=== PATIENT | female | born 1985 | race African-American/Black ===

== ENCOUNTER 2021-06-04 12:34 | Emergency (ER) | payer OTHER ==
[~2021-06-04] VITALS: Ht 167.6 cm; Wt 87.0 kg
[2021-06-04 12:56] VITALS: BP 136/56
[2021-06-04] MEDS ORDERED: METHOCARBAMOL 500MG TABLET PO ONE (13:00)
[2021-06-04] MEDS ORDERED: KETOROLAC 60MG/2ML VIAL IM ONE (13:00)
[2021-06-04] MEDS ORDERED: METHOCARBAMOL 500MG TABLET PO NR (15:00)
[2021-06-04] MEDS ORDERED: KETOROLAC 60MG/2ML VIAL IM NR (15:00)
[2021-06-04] MEDS ORDERED: LIDO1ADH5 TP (16:30)
[2021-06-04] MEDS ORDERED: NAPR-681 MT (16:30)
[2021-06-04] MEDS ORDERED: METH-773 MT (16:30)
== END 2021-06-04 16:03 | disposition left against medical advice (07) ==
LOC: ER 12:34
DX: S16.1XXA Strain of muscle, fascia and tendon at neck level, initial encounter (principal); S20.219A Contusion of unspecified front wall of thorax, initial encounter; J45.909 Unspecified asthma, uncomplicated; V43.52XA Car driver injured in collision with other type car in traffic accident, initial encounter; Y93.89 Activity, other specified; Y92.488 Other paved roadways as the place of occurrence of the external cause
CPT/HCPCS: 71045; 93005; 96372; 99283; J1885

== ENCOUNTER 2022-04-08 16:31 | Emergency (ER) | payer OTHER ==
[~2022-04-08] VITALS: Ht 167.6 cm; Wt 86.0 kg
[~2022-04-08 16:31] MED LIST: LIDO1ADH5 TP; METH-773 MT; NAPR-681 MT
[2022-04-08 19:31] LABS: HEMATOCRIT. 21.6 % (36.0-48.0); MEAN CORPUSCULAR HEMOGLOBIN 17.8 pg (28.0-32.0); MEAN CORPUSCULAR VOLUME 61.7 fL (81.0-99.0); MEAN PLATELET VOLUME 6.1 fl (7.4-10.4); PLATELET 461 x1000/uL (130-400); RED BLOOD CELL COUNT 3.51 mill/uL (4.2-5.4)
[2022-04-08 19:36] LABS: CHLORIDE 103 mEq/L (98-107)
[2022-04-08 19:37] LABS: HEMOGLOBIN. 6.2 g/dL (12.0-16.0)
[2022-04-08 19:38] LABS: PROTHROMBIN TIME 10.3 sec (9.6-11.0)
[2022-04-08 19:56] LABS: PLATELET ESTIMATE INCREASED
[2022-04-09 05:50] VITALS: BP 108/72
== END 2022-04-09 06:11 | disposition home or self-care (01) ==
LOC: ER 16:31
DX: R42 Dizziness and giddiness (principal); J45.909 Unspecified asthma, uncomplicated; Z98.890 Other specified postprocedural states
CPT/HCPCS: 36415; 80053; 85025; 85610; 86850; 86900; 86901; 86920; 93005; 99285; Z7610; 36430; P9016